=== PATIENT | male | born 1980 | race Caucasian/White ===

== ENCOUNTER 2019-03-09 20:58 | Emergency (ER) | payer MEDICAID ==
[~2019-03-09] VITALS: Ht 167.6 cm; Wt 64.5 kg
[2019-03-09 20:59] VITALS: BP 122/78
--- NOTE | 2019-03-09 21:10 | NUR ---
PT HAS POSSIBLE CYST ON BACK OF HEAD. WANTS IT REMOVED
== END 2019-03-09 22:06 ==
LOC: ED 21:37
DX: L72.3 Sebaceous cyst (principal)
CPT/HCPCS: 99281